=== PATIENT | male | born 1995 | race Two or more races ===

== ENCOUNTER 2021-03-19 11:36 | Day surgery (SDC) | payer OTHER ==
[2021-03-18 10:56] LABS: Basophils # (auto) 0 10 ^3/uL (0-0.2); Basophils % (auto) 0.9 % (0.0-2.0); Eosinophils # (auto) 0.1 10 ^3/uL (0-0.8); Eosinophils % (auto) 1.2 % (0.0-7.0); Hematocrit 47.3 % (41.0-53.0); Hemoglobin 15.9 g/dL (13.5-17.5); Lymphocytes # (auto) 1.7 10 ^3/uL (0.4-5.4); Lymphocytes % (auto) 34.2 % (10.0-50.0); Mean Corpuscular Hemoglobin 29.4 pg (28.0-32.0); Mean Corpuscular Hgb Conc. 33.5 g/dL (32.0-36.0); Mean Corpuscular Volume 87.7 fL (80.0-100.0); Monocytes # (auto) 0.3 10 ^3/uL (0-1.3); Monocytes % (auto) 6.7 % (0.0-12.0); Neutrophils # (auto) 2.9 10 ^3/uL (1.6-8.6); Nucleated Red Blood Cells % 0.1 %; Red Cell Distribution Width 12.6 % (11.8-14.3); White Blood Cell 5.1 10^3/uL (4.4-10.8)
[2021-03-18 12:30] LABS: Albumin 3.9 g/dL (3.4-5.0); Potassium 3.8 mmol/L (3.5-5.1)
[2021-03-18 12:38] LABS: BUN/Creatinine Ratio 15.4; Bilirubin, Total 1.1 mg/dL (0.2-1.0); Total Protein 7.3 g/dL (6.4-8.2)
[~2021-03-19] VITALS: Ht 170.2 cm; Wt 80.7 kg
[2021-03-19] MEDS ORDERED: ceFAZolin 1GM/50ML 100 ML IV ONE (12:38)
[2021-03-19] MEDS ORDERED: BUPIVACAINE 0.25% INJ 50ML VIAL ONE (12:55)
[2021-03-19] MEDS ORDERED: MIDAZOLAM HCL 2MG/2ML 2ml VIAL (1mg/ml) ONE (13:01)
[2021-03-19] MEDS ORDERED: GLYCOPYRROLATE 0.2 MG/ML 1ML VIAL ONE (13:02)
[2021-03-19] MEDS ORDERED: ONDANSETRON HCL 4 MG/2 ML VIAL ONE (13:02)
[2021-03-19] MEDS ORDERED: BUPIVACAINE HCL 50 ML ONE (13:47)
[2021-03-19] MEDS ORDERED: EPINEPHrine HCL 1 MG/1 ML AMP ONE (13:48)
[2021-03-19] MEDS ORDERED: HYDROmorphone HCL 2 MG/ML VL ONE (14:16)
[2021-03-19] MEDS ORDERED: KETOROLAC TROMETH 30 MG/ML 1ML VIAL ONE (14:16)
[2021-03-19] MEDS ORDERED: DexAMETHasone SOD PHOS 10MG/1ML VIAL INJ ONE (14:16)
[2021-03-19] MEDS ORDERED: fentaNYL CITRATE 100 MCG/2 ML VL ONE (14:16)
[2021-03-19] MEDS ORDERED: PROPOFOL 10 MG/ML 20 ML IV ONE (14:16)
[2021-03-19] MEDS ORDERED: BACITRACIN TOP OINT 1 UD PKG TOP ONE (16:26)
[2021-03-19] MEDS ORDERED: NALOXONE HCL 0.4 MG/ML VIAL ONE (17:12)
[2021-03-19] MEDS ORDERED: MEPERIDINE HCL (25 MG/ML) 1ML VIAL ONE (17:30)
[2021-03-19] MEDS ORDERED: FAMOTIDINE (10MG/ML) 2ML VL IV ONE (17:39)
[2021-03-19] MEDS ORDERED: ONDANSETRON HCL 4 MG/2 ML VIAL IV PRN (17:45)
[2021-03-19] MEDS ORDERED: HYDROmorphone HCL 2 MG/ML VL IV PRN (17:45)
[2021-03-19 19:00] VITALS: BP 124/80
== END 2021-03-19 19:20 | disposition home or self-care (01) ==
LOC: SUR 11:36
PROVIDERS: ATTEND Orthopaedic Surgery Sports Medicine
DX: M25.561 Pain in right knee (principal); S83.519A Sprain of anterior cruciate ligament of unspecified knee, initial encounter; Z98.890 Other specified postprocedural states; Z79.899 Other long term (current) drug therapy; Z20.822 Contact with and (suspected) exposure to COVID-19; X58.XXXA Exposure to other specified factors, initial encounter; Y93.89 Activity, other specified; Y92.89 Other specified places as the place of occurrence of the external cause; Y99.8 Other external cause status
CPT/HCPCS: 29882; 29888; 36415; 80053; 85025; C1713; J0171; J0690; J1100; J1170; J1885; J2175; J2250; J2310; J2405; J2704; J3010; J3490; U0003

== ENCOUNTER 2021-03-27 16:55 | Emergency (ER) | payer OTHER ==
[~2021-03-27] VITALS: Ht 170.2 cm; Wt 80.7 kg
[2021-03-27 20:05] VITALS: BP 132/44
== END 2021-03-27 21:13 | disposition home or self-care (01) ==
LOC: ER 16:55
DX: I82.4Z1 Acute embolism and thrombosis of unspecified deep veins of right distal lower extremity (principal)
CPT/HCPCS: 93971